=== PATIENT | male | born 1990 | race Caucasian/White ===

== ENCOUNTER 2019-02-18 08:46 | Emergency (ER) | payer OTHER ==
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
[2019-02-18] MEDS ORDERED: ISOVUE-370 76%-LOCM 1 ML ONE (09:51)
[2019-02-18] MEDS ORDERED: Ketorolac Tromethamine 30 MG/ML VIAL ONE (10:23)
== END 2019-02-18 11:48 | disposition home or self-care (01) ==
LOC: ERS 08:46
DX: S80.12XA Contusion of left lower leg, initial encounter (principal); S50.812A Abrasion of left forearm, initial encounter; K21.9 Gastro-esophageal reflux disease without esophagitis; I10 Essential (primary) hypertension; F41.9 Anxiety disorder, unspecified; V89.2XXA Person injured in unspecified motor-vehicle accident, traffic, initial encounter
CPT/HCPCS: 70450; 71260; 72125; 74177; 93005; 94760; 96374; G0390; J1885; Q9966